=== PATIENT | male | born 1965 | race Caucasian/White ===

== ENCOUNTER 2020-11-21 15:43 | Outpatient (REF) | payer BC, SELFPAY ==
[2020-11-21 16:21] LABS: Blood Urea Nitrogen 24 mg/dL (9-16)
== END 2020-11-21 15:44 | disposition home or self-care (01) ==
LOC: HO.LNP 15:43
PROVIDERS: Visit Provider Internal Medicine
DX: R79.9 Abnormal finding of blood chemistry, unspecified (principal)
CPT/HCPCS: 84520

== ENCOUNTER 2020-12-27 16:15 | Outpatient (REF) | payer BC, SELFPAY ==
[2020-12-27 16:34] LABS: Blood Urea Nitrogen 24 mg/dL (9-16)
== END 2020-12-27 16:16 | disposition home or self-care (01) ==
LOC: HO.LNP 16:15
PROVIDERS: Visit Provider Internal Medicine
DX: R79.9 Abnormal finding of blood chemistry, unspecified (principal)
CPT/HCPCS: 84520

== ENCOUNTER 2021-02-18 10:20 | Outpatient (REF) | payer BC, SELFPAY ==
[2021-02-18 10:25] LABS: MANUAL DIFF FLAG NO
[2021-02-18 10:40] LABS: Basophils Absolute Auto 0.1 X10*3/uL (0.0-0.2); Basophils Percent Auto 0.8 % (0-2); Eosinophils Absolute Auto 1.3 X10*3/uL (0.0-0.4); Eosinophils Percent Auto 17.5 % (0-4); Hematocrit 46.7 % (42.0-52.0); Hemoglobin 15.7 g/dl (14.0-18.0); Imm Gran Abs Auto 0.02 X10*3/uL (0.00-0.03); Imm Gran Pct Auto 0.3 % (0.0-0.4); Lymphocytes Absolute Auto 1.8 X10*3/uL (1.2-4.9); Lymphocytes Percent Auto 23.2 % (20-40); Mean Corpuscular HGB Conc 33.6 g/dl (31.0-36.0); Mean Corpuscular Hemoglobin 30.4 pg (27.0-33.0); Mean Corpuscular Volume 90.5 fL (80.0-98.0); Mean Platelet Volume 9.9 fL (9.4-12.4); Monocytes Absolute Auto 0.7 X10*3/uL (0.1-1.2); Monocytes Percent Auto 8.9 % (2-11); Neutrophils Absolute Auto 3.8 x10*3/uL (2.0-8.3); Neutrophils Percent Auto 49.3 % (45-73); Platelet Count 401 X10*3/uL (160-400); Red Blood Count 5.16 X10*6/uL (4.60-5.80); Red Cell Distribution Width 13.1 % (11.0-16.0); White Blood Count 7.6 X10*3/uL (4.8-10.8)
[2021-02-18 11:07] LABS: Appearance Urine CLEAR; Color Urine YELLOW; Glucose Urine UA NEG (NEG); Leukocyte Esterase Urine NEG (NEG); Nitrite Urine NEG (NEG); PH 6.5 (5.0-8.0); Urine Blood NEG (NEG); Urine Ketones NEG (NEG); Urine Protein NEG (NEG-TRACE)
[2021-02-18 11:17] LABS: PSA,Total (Free>4and<10) 0.85 ng/mL (0.00-4.00)
[2021-02-18 11:19] LABS: Alanine Aminotransferase 27 U/L (0-40); Albumin Level 4.3 g/dL (3.5-5.0); Alkaline Phosphatase 78 U/L (39-117); Anion Gap 11 (12-20); Aspartate Amino Transferase 28 U/L (5-37); Bilirubin Total 0.5 mg/dL (0.0-1.0); Blood Urea Nitrogen 23 mg/dL (9-16); Calcium 10.1 mg/dL (8.4-10.2); Carbon Dioxide 29 mmol/L (22-29); Chloride 107 mmol/L (96-108); Cholesterol 228 mg/dL; Estimated Glomerular Filt Rate > 60; Glucose Fasting 101 mg/dL (60-99); HDL Cholesterol 54 mg/dL; LDL Cholesterol Calculated 159 mg/dl; Potassium 5.2 mmol/L (3.3-5.1); Sodium 142 mmol/L (135-145); Total Protein 7.2 g/dL (6.5-8.0); Triglycerides 79 mg/dL
[2021-02-18 11:21] LABS: Reflex LDLD? No
== END 2021-02-18 10:21 | disposition home or self-care (01) ==
LOC: HO.LNP 10:20
PROVIDERS: Visit Provider Internal Medicine
DX: Z00.00 Encounter for general adult medical examination without abnormal findings (principal); Z12.5 Encounter for screening for malignant neoplasm of prostate; R94.5 Abnormal results of liver function studies; R79.9 Abnormal finding of blood chemistry, unspecified
CPT/HCPCS: 80053; 80061; 81003; 84153; 85025

== ENCOUNTER 2022-04-24 10:45 | Outpatient (REF) | payer BC, SELFPAY ==
[2022-04-24 10:48] LABS: MANUAL DIFF FLAG NO
[2022-04-24 11:23] LABS: Appearance Urine Clear; Color Urine Yellow; Glucose Urine UA Negative (Negative); Leukocyte Esterase Urine Negative (Negative); Nitrite Urine Negative (Negative); PH 6.5 (5.0-9.0); Specific Gravity - Urine 1.015 (1.005-1.025); Urine Blood Negative (Negative); Urine Ketones Negative (Negative); Urine Protein Negative (Neg-Trace)
[2022-04-24 11:44] LABS: Basophils Absolute Auto 0.1 X10*3/uL (0.0-0.2); Basophils Percent Auto 1.1 % (0-2); Eosinophils Absolute Auto 0.4 X10*3/uL (0.0-0.4); Eosinophils Percent Auto 6.2 % (0-4); Hemoglobin 15.5 g/dl (14.0-18.0); Imm Gran Abs Auto 0.02 X10*3/uL (0.00-0.03); Imm Gran Pct Auto 0.3 % (0.0-0.4); Lymphocytes Absolute Auto 1.5 X10*3/uL (1.2-4.9); Lymphocytes Percent Auto 23.4 % (20-40); Mean Corpuscular Hemoglobin 29.5 pg (27.0-33.0); Mean Corpuscular Volume 89.5 fL (80.0-98.0); Mean Platelet Volume 10.7 fL (9.4-12.4); Monocytes Absolute Auto 0.6 X10*3/uL (0.1-1.2); Monocytes Percent Auto 9.9 % (2-11); Neutrophils Absolute Auto 3.8 x10*3/uL (2.0-8.3); Neutrophils Percent Auto 59.1 % (45-73); Platelet Count 326 X10*3/uL (160-400); Red Blood Count 5.25 X10*6/uL (4.60-5.80); Red Cell Distribution Width 12.8 % (11.0-16.0); White Blood Count 6.4 X10*3/uL (4.8-10.8)
[2022-04-24 12:38] LABS: Alanine Aminotransferase 28 U/L (0-40); Albumin Level 4.3 g/dL (3.5-5.0); Alkaline Phosphatase 75 U/L (39-117); Anion Gap 10 (12-20); Aspartate Amino Transferase 26 U/L (5-37); Blood Urea Nitrogen 20 mg/dL (9-16); Calcium 9.6 mg/dL (8.4-10.2); Carbon Dioxide 28 mmol/L (22-29); Chloride 107 mmol/L (96-108); Cholesterol 223 mg/dL; Estimated Glomerular Filt Rate > 60; Glucose Fasting 95 mg/dL (60-99); HDL Cholesterol 57 mg/dL; LDL Cholesterol Calculated 155 mg/dl; PSA,Total (Free>4and<10) 1.01 ng/mL (0.00-4.00); Potassium 4.3 mmol/L (3.3-5.1); Sodium 141 mmol/L (135-145); Triglycerides 58 mg/dL
== END 2022-04-24 10:46 | disposition home or self-care (01) ==
LOC: HO.LNP 10:45
PROVIDERS: Visit Provider Internal Medicine
DX: Z00.00 Encounter for general adult medical examination without abnormal findings (principal); N40.0 Benign prostatic hyperplasia without lower urinary tract symptoms; Z12.5 Encounter for screening for malignant neoplasm of prostate; Z86.39 Personal history of other endocrine, nutritional and metabolic disease
CPT/HCPCS: 80053; 80061; 81003; 84153; 85025

== ENCOUNTER 2022-07-02 11:27 | Outpatient (REF) | payer BC, SELFPAY ==
--- NOTE | ~2022-07-02 | XR_ITS ---
EXAMINATION: XR CHEST CLINICAL INFORMATION: Shortness of breath COMPARISON: Previous x-ray March 2009 TECHNIQUE: 2 views of the chest were obtained. FINDINGS: No significant abnormality is noted involving the heart, lungs, mediastinum, bony thorax or soft tissues. There are mild degenerative changes of the lower thoracic spine. XR/XR chest 2V IMPRESSION: No evidence for acute disease in the chest.
== END 2022-07-02 11:28 | disposition home or self-care (01) ==
LOC: HO.XRAY 11:27
PROVIDERS: PCP Internal Medicine; Visit Provider Internal Medicine
DX: R06.02 Shortness of breath (principal)
CPT/HCPCS: 71046

== ENCOUNTER → 2022-07-23 14:49 | Outpatient (REF) | payer BC, SELFPAY ==
--- NOTE | 2022-07-23 14:52 | CA_ITS ---
Transthoracic Echocardiogram Patient (Last, First, Middle): Jonathan Leyva, Gender: Male Date of : 1965 Age: 56 Procedure Date: 07/23/2022 Procedure Type: Transthoracic Echocardiogram Location: OP Height: 182.88 cm Weight: 96.16 kg BSA: 2.18 m2 Heart Rate: bpm BP: 145 / 90 mmHg Fur Blender: ISABELL Referring MD: Fidel Yo MD Symptoms: R06.02 SOB Study Quality: Adequate ECG Rhythm: Sinus Conclusions: - The left ventricular systolic function is normal. The calculated ejection fraction is 67% by biplane method. - Mildly increased right ventricular cavity size. - No obvious valvular pathology seen on this study. Findings Left Ventricle Normal left ventricular cavity size. The left ventricular systolic function is normal. The calculated ejection fraction is 67% by biplane method. There is no evidence of regional wall motion abnormalities. Diastolic function is normal for age. There is mild septal and mild basal asymmetric hypertrophy. LV peak GLS -22.5% (normal). Right Ventricle Mildly increased right ventricular cavity size. There is normal right ventricular systolic function. Atria The left atrium is mildly dilated. The right atrium is normal in size. Aortic Valve There is a normal trileaflet aortic valve. There is mild calcification of the aortic valve. There is no aortic valve stenosis. There is no aortic valve regurgitation. Mitral Valve The mitral valve appears normal. There is trace mitral valve regurgitation. There is no mitral valve stenosis. Pulmonic Valve The pulmonic valve is likely normal. Tricuspid Valve There is trace tricuspid valve regurgitation. Tricuspid regurgitation envelope is inadequate for calculation of right ventricular systolic pressure. Great Vessels The asc aorta is normal in size. Venous The inferior vena cava is dilated and collapses greater than 50% with inspiration. Pericardium/Pleural There is no evidence of pericardial effusion. Prior Study Comparison No prior study available for comparison. Recommendations, Care & Conclusions No obvious valvular pathology seen on this study. Measurements 2D Linear Measurements IVSd: 1.11 0.6-0.9/0.6-1.0 cm LVIDd: 5.23 3.9-5.3/4.2-5.9 cm LVIDd Index: 2.40 2.4-3.2/2.2-3.1 cm/m2 LVIDs: 3.38 2.0-3.6 cm LVPWd: 0.80 0.7-1.1 cm LA Diam: 3.60 2.7-3.8/3.0-4.0 cm LAIDs Index: 1.65 1.5-2.3 cm/m2 LV Mass: 228.98 67-162/88-224 g LV Mass Index: 105.04 43-95/49-115 g/m2 LVOT Diam: 2.40 3.0+(-)1.3 cm 2D Systolic Function EF 4C: 64.30 >55% EF 2C: 68.90 >55% EF BiP: 66.70 >55% Mitral Valve MV Pk E: 0.83 MV PK A: 0.51 MV Decel Time: 198.00 E/A: 1.60 E'Lateral: 16.10 E'Medial: 10.10 E/E' Med: 8.20 E/E' Lat: 5.10 PHT: 58.00 MVA PHT: 3.79 Decel Barren: 4.18 Aortic Valve AoV Pk Chandra: 1.78 AoV Mn Chandra: 1.26 AoV VTI: 0.46 AoV Pk Grad: 13.00 Aov Mn Grad: 7.00 CHANTEL Cont.VTI: 3.36 LVOT LVOT Pk Chandra: 1.50 LVOT Mn Chandra: 1.00 LVOT VTI: 0.34 LVOT Pk Grad: 9.00 LVOT Mn Grad: 5.00 LVOT Diam: 2.40 LVOT Area: 4.52 Diastolic Function MV Pk E: 0.83 MV Pk A: 0.51 E/A: 1.60 E'Medial: 10.10 E/E' Med: 8.20 E' Laterial: 16.10 E/E' Lat: 5.10 Right Ventricle TAPSE (mm): 33.20 TVS' Chandra: 17.20 Tricuspid Valve RA Press: 8.00 Great Vessels Aorta Sinus of Valsalva: 2.58 2.0-3.5 cm Ao Asc: 3.20 2.1-3.4 cm Updated in Other Vendor System with Status of Final Sandoval Dickson MD electronically signed on 07/24/2022 11:42:17 AM with status of Final
== END ==
LOC: HO.CARD 14:49
PROVIDERS: PCP Internal Medicine; Visit Provider Internal Medicine
DX: R06.02 Shortness of breath (principal)
CPT/HCPCS: 93306; 93356

== ENCOUNTER 2023-04-27 10:34 | Outpatient (REF) | payer BC, SELFPAY ==
[2023-04-27 10:36] LABS: MANUAL DIFF FLAG NO
[2023-04-27 10:50] LABS: Basophils Percent Auto 0.6 % (0-2); Eosinophils Absolute Auto 0.3 X10*3/uL (0.0-0.4); Eosinophils Percent Auto 3.6 % (0-4); Hematocrit 43.7 % (42.0-52.0); Hemoglobin 14.8 g/dl (14.0-18.0); Imm Gran Abs Auto 0.02 X10*3/uL (0.00-0.03); Imm Gran Pct Auto 0.3 % (0.0-0.4); Lymphocytes Absolute Auto 1.2 X10*3/uL (1.2-4.9); Lymphocytes Percent Auto 18.1 % (20-40); Mean Corpuscular HGB Conc 33.9 g/dl (31.0-36.0); Mean Corpuscular Hemoglobin 29.9 pg (27.0-33.0); Mean Corpuscular Volume 88.3 fL (80.0-98.0); Mean Platelet Volume 10.1 fL (9.4-12.4); Monocytes Absolute Auto 0.6 X10*3/uL (0.1-1.2); Monocytes Percent Auto 9.1 % (2-11); Neutrophils Absolute Auto 4.7 x10*3/uL (2.0-8.3); Neutrophils Percent Auto 68.3 % (45-73); Platelet Count 327 X10*3/uL (160-400); Red Blood Count 4.95 X10*6/uL (4.60-5.80); Red Cell Distribution Width 12.5 % (11.0-16.0); White Blood Count 6.9 X10*3/uL (4.8-10.8)
[2023-04-27 11:04] LABS: Appearance Urine Clear; Color Urine Yellow; Glucose Urine UA Negative (Negative); Leukocyte Esterase Urine Negative (Negative); Nitrite Urine Negative (Negative); PH 7.5 (5.0-9.0); Urine Blood Negative (Negative); Urine Ketones Negative (Negative); Urine Protein Negative (Neg-Trace)
[2023-04-27 11:08] LABS: Bacteria Urine None Seen (None Seen); Hyaline Casts Urine 0-2 /LPF (0-2); RBC Urine 0-2 /HPF (0-2); Squamous Epithelial Cell Urine 0-2 /HPF (0-2); WBC Urine 0-5 /HPF (0-5)
[2023-04-27 11:55] LABS: Alanine Aminotransferase 28 U/L (0-40); Albumin Level 4.3 g/dL (3.5-5.0); Alkaline Phosphatase 77 U/L (39-117); Anion Gap 8 (12-20); Aspartate Amino Transferase 27 U/L (5-37); Bilirubin Total 0.7 mg/dL (0.0-1.0); Blood Urea Nitrogen 19 mg/dL (9-16); Calcium 9.6 mg/dL (8.4-10.2); Carbon Dioxide 28 mmol/L (22-29); Chloride 107 mmol/L (96-108); Cholesterol 218 mg/dL (<200); Estimated Glomerular Filt Rate > 60; Glucose Fasting 100 mg/dL (60-99); HDL Cholesterol 60 mg/dL (>40); LDL Cholesterol Calculated 146 mg/dL (<100); Potassium 4.4 mmol/L (3.3-5.1); Sodium 139 mmol/L (135-145); Total Protein 7.4 g/dL (6.5-8.0); Triglycerides 64 mg/dL (<150)
[2023-04-27 12:40] LABS: PSA,Total (Free>4and<10) 1.08 ng/mL (0.00-4.00)
== END 2023-04-27 10:35 | disposition home or self-care (01) ==
LOC: HO.LNP 10:34
PROVIDERS: Visit Provider Internal Medicine
DX: Z00.00 Encounter for general adult medical examination without abnormal findings (principal); Z12.5 Encounter for screening for malignant neoplasm of prostate; Z13.6 Encounter for screening for cardiovascular disorders; N40.0 Benign prostatic hyperplasia without lower urinary tract symptoms
CPT/HCPCS: 80053; 80061; 81001; 84153; 85025

== ENCOUNTER 2023-05-03 15:06 | Outpatient (REF) | payer BC, SELFPAY ==
--- NOTE | ~2023-05-03 | XR_ITS ---
EXAMINATION: XR CHEST CLINICAL INFORMATION: Mild intermittent asthma. COMPARISON: 07/02/2022 TECHNIQUE: 3 views of the chest. FINDINGS: The lungs are well inflated. There is no gross pneumothorax. Heart size within normal limits. No pleural effusion. Mild degenerative changes in the thoracic spine. No gross pleural effusion. XR/XR chest 2V IMPRESSION: No evidence of pneumonia. Well-inflated lungs.
== END 2023-05-03 15:07 | disposition home or self-care (01) ==
LOC: HO.XRAY 15:06
PROVIDERS: PCP Internal Medicine; Visit Provider Internal Medicine
DX: J45.20 Mild intermittent asthma, uncomplicated (principal)
CPT/HCPCS: 71046

== ENCOUNTER 2024-01-03 07:33 | Day surgery (SDC) | payer BC, SELFPAY ==
[2023-12-30 14:20] VITALS: BMI 28.7
[2024-01-03 07:42] VITALS: BMI 28.1
[2024-01-03] MEDS: Lactated Ringers 1,000 ML 80 ML IVCONT (07:47)
[2024-01-03 07:55] VITALS: BP 141/91; PULSE 61; RESP 18; TEMP 36.7; O2SAT 97
--- NOTE | 2024-01-03 08:14 | P.CONAN_ITS ---
[facility] Past Medical History Medical History Asthma Surgical History Surgical History History of surgery on arm History of ankle surgery Hx of appendectomy H/O colonoscopy History of Problems with Anesthesia: No Social History Social History Household Members: Spouse Are you a primary tree care foreman to a significant other at home: No Do you presently have visiting nurse or other home services: No Patient Tobacco Use Status: Never used Tobacco Have you been hit, kicked, punched, or otherwise hurt by someone within the past year? If so, by whom?: No Are you DNR?: No Advance Directives: No Advance Directives Information Provided: Yes Recently lost weight without trying: No Nutrition Risks: No Nutritional Risk Meds Allergies Allergy/AdvReac Type Severity Reaction Status Date / Time No Known Allergies Allergy Verified 01/03/24 07:44 Active Medications: Current Medications Lactated Ringer's (Lr) 1,000 mls @ 80 mls/hr IVCONT .[id number] SAADIA Last Admin: 01/03/24 07:47 Dose: 80 mls/hr Sodium Biphosphate/Sodium Phosphate (Sodium Phosphate,Churchill-Dibasic 133 Ml Enema) 133 ml DC ONCE PRN PRN Reason: Poor Colonoscopy Prep Results Home Medications ?Medication ?Instructions ?Recorded ?Confirmed ?Last Taken ?Type albuterol sulfate 90 mcg/actuation 2 puff inhalation Q4-6H PRN 12/30/23 12/30/23 Unknown History aerosol inhaler Shortness Of Breath fluticasone 250 mcg-salmeterol 50 1 inh inhalation BID 12/30/23 12/30/23 01/03/24 History mcg/dose blistr powdr for inhalation tadalafil 20 mg tablet 20 mg PO DAILY PRN Erectile 12/30/23 12/30/23 Unknown History Dysfunction Exam Height,Weight and Vital Signs: Height 6 ft 0.5 in Weight 95.254 kg Last Vital Signs Temp 98.0 F 01/03/24 07:55 Pulse 61 01/03/24 07:55 Resp 18 01/03/24 07:55 BP 141/91 H 01/03/24 07:55 Pulse Ox 97 01/03/24 07:55 O2 Del Method Room Air 01/03/24 07:55 Airway Mallampati Class: II TM Dist: >3cm Neck ROM: Full Loose/Missing/Broken Teeth: No Heart: RRR Lungs: CTA Assessment and Plan Assessment Anesthesia Assessment: Anesthesia Plan Discussed and Chart Reviewed Final Anesthetic Review History of Problems with Anesthesia: No NPO: Yes ASA Class: II Final Preanesthetic Review: Meds/Allgs Chart Reviewed, Consent Obtained/Reviewed and Anes Risks/Benef Reviewed Patient Risk: Low Procedure Risk: Low Anesthetic Plan Anesthetic Plan: MAC: Disposition: Standard PACU
[2024-01-03 09:33] VITALS: BP 111/54; PULSE 57; RESP 18; TEMP 36.1; O2SAT 98
--- NOTE | 2024-01-03 09:36 | PM.OP ---
Brief Operative Note Date of Service: 01/03/24 Pre-op diagnosis: Screening Post-op diagnosis: other (Diverticulosis) Procedure: Colonoscopy to the cecum Surgeon: Adrián Pedraza MD Anesthesia: MAC Was an Business Banking Officer used for this Procedure?: No Estimated blood loss (mL): 0 Pathology: none sent Condition: stable Disposition: PACU
[2024-01-03 09:48] VITALS: BP 126/83; PULSE 68; RESP 18; TEMP 36.1; O2SAT 98
--- NOTE | 2024-01-03 09:53 | OP_ITS ---
DATE OF SERVICE: 01/03/2024 SURGEON: Adrián Pedraza MD INDICATIONS: The patient presents for evaluation of colorectal cancer screening. Full consent was obtained from him for this, including risks of bleeding and perforation. PREOPERATIVE DIAGNOSIS: Colorectal cancer screening. POSTOPERATIVE DIAGNOSIS: PROCEDURE PERFORMED: Colonoscopy to cecum. ESTIMATED BLOOD LOSS: COMPLICATIONS: ANESTHESIA: Medication used, monitored anesthesia care. ASSISTANTS: SPECIMENS: POSTOPERATIVE DIAGNOSES: Colorectal cancer screening, diverticulosis, and internal hemorrhoids. DESCRIPTION OF PROCEDURE: The patient was placed in the left lateral decubitus position. The digital rectal exam revealed no abnormalities. The Olympus video pediatric colonoscope was entered into the rectum and advanced to the cecum with the assistance of abdominal wall pressure. Once in the cecum, I did identify normal-appearing cecal pouch with appendiceal orifice and a normal-appearing ileocecal valve. There was transillumination of light deep in the right lower quadrant. The entire cecum and ileocecal valve appeared normal. The scope was slowly withdrawn assessing all mucosal surfaces carefully. Preparation was excellent. I did not visualize any sign of polyps, colitis, nor angiodysplasia. There was a mild amount of sigmoid diverticulosis. In the rectum, the scope was retroflexed visualizing internal hemorrhoids, but no other pathology. The rectal mucosa appeared normal. The scope was straightened and withdrawn from the patient. He tolerated the procedure well and was returned to the recovery area in stable condition. IMPRESSION: 1. Diverticulosis. 2. Internal hemorrhoids. PLAN: Given the negative exam and negative family history, I would recommend a followup coloscopy in 10 years for further screening. He will otherwise see me on a p.r.n. basis. Adrián Pedraza MD RMW/JESSIKAL / [id number]
== END 2024-01-03 10:27 | disposition home or self-care (01) ==
PROVIDERS: PCP Internal Medicine; Visit Provider Internal Medicine
PROC: 0DJD8ZZ Inspection of Lower Intestinal Tract, Via Natural or Artificial Opening Endoscopic (ICD-10-PCS; CPT 45378; principal; 2024-01-03 08:30)
DX: Z12.11 Encounter for screening for malignant neoplasm of colon (principal); K57.30 Diverticulosis of large intestine without perforation or abscess without bleeding; K64.8 Other hemorrhoids; J45.909 Unspecified asthma, uncomplicated; Z79.51 Long term (current) use of inhaled steroids; Z98.890 Other specified postprocedural states
CPT/HCPCS: 45378; J2250; J2704

== ENCOUNTER 2024-02-04 13:14 | Outpatient (REF) | payer BC, SELFPAY ==
--- NOTE | ~2024-02-04 | XR_ITS ---
EXAMINATION: XR CHEST CLINICAL INFORMATION: PNEUMONIA DUE TO MYCOPLASMA PNEUMONIAE COMPARISON: None available. TECHNIQUE: 2 views of the chest were obtained. FINDINGS: The cardiac silhouette is normal. There is mild diffuse bronchial wall thickening. There are no areas of consolidation. There are no pleural effusions or pneumothoraces. The bones and soft tissues are unremarkable for the patient's age. XR/XR chest 2V IMPRESSION: Bronchial wall thickening may be infectious and/or inflammatory in etiology. Electronically signed by: Oriana Ortega MD 02/05/2024 07:08 PM [facility]
== END 2024-02-04 13:15 | disposition home or self-care (01) ==
LOC: HO.XRAY 13:14
PROVIDERS: PCP Internal Medicine; Visit Provider Internal Medicine
DX: J15.7 Pneumonia due to Mycoplasma pneumoniae (principal)
CPT/HCPCS: 71046

== ENCOUNTER 2024-04-27 08:00 | Outpatient (REF) | payer BC, SELFPAY ==
[2024-04-27 10:33] LABS: MANUAL DIFF FLAG NO
[2024-04-27 11:01] LABS: Basophils Absolute Auto 0.1 X10*3/uL (0.0-0.2); Basophils Percent Auto 0.8 % (0-2); Eosinophils Absolute Auto 0.4 X10*3/uL (0.0-0.4); Hematocrit 45.2 % (42.0-52.0); Hemoglobin 15.3 g/dl (14.0-18.0); Imm Gran Abs Auto 0.03 X10*3/uL (0.00-0.03); Imm Gran Pct Auto 0.4 % (0.0-0.4); Lymphocytes Absolute Auto 1.6 X10*3/uL (1.2-4.9); Lymphocytes Percent Auto 21.1 % (20-40); Mean Corpuscular HGB Conc 33.8 g/dl (31.0-36.0); Mean Corpuscular Hemoglobin 29.9 pg (27.0-33.0); Mean Corpuscular Volume 88.5 fL (80.0-98.0); Mean Platelet Volume 9.7 fL (9.4-12.4); Monocytes Absolute Auto 0.7 X10*3/uL (0.1-1.2); Neutrophils Absolute Auto 4.7 x10*3/uL (2.0-8.3); Neutrophils Percent Auto 63.7 % (45-73); Platelet Count 384 X10*3/uL (160-400); Red Blood Count 5.11 X10*6/uL (4.60-5.80); Red Cell Distribution Width 12.4 % (11.0-16.0); White Blood Count 7.3 X10*3/uL (4.8-10.8)
[2024-04-27 11:26] LABS: Appearance Urine Clear; Color Urine Yellow; Glucose Urine UA Negative (Negative); Leukocyte Esterase Urine Negative (Negative); Nitrite Urine Negative (Negative); Urine Blood Negative (Negative); Urine Ketones Negative (Negative); Urine Protein Negative (Neg-Trace)
[2024-04-27 11:34] LABS: Albumin Level 4.1 g/dL (3.5-5.0); Alkaline Phosphatase 76 U/L (39-117); Anion Gap 10 (12-20); Aspartate Amino Transferase 37 U/L (5-37); Bilirubin Total 0.4 mg/dL (0.0-1.0); Blood Urea Nitrogen 22 mg/dL (9-16); Calcium 9.5 mg/dL (8.4-10.2); Carbon Dioxide 28 mmol/L (22-29); Chloride 107 mmol/L (96-108); Cholesterol 195 mg/dL (<200); Estimated Glomerular Filt Rate > 60; Glucose Fasting 99 mg/dL (60-99); HDL Cholesterol 53 mg/dL (>40); LDL Cholesterol Calculated 130 mg/dL (<100); Potassium 4.5 mmol/L (3.3-5.1); Sodium 140 mmol/L (135-145); Total Protein 7.5 g/dL (6.5-8.0); Triglycerides 63 mg/dL (<150)
[2024-04-27 11:41] LABS: PSA,Total (Free>4and<10) 1.38 ng/mL (0.00-4.00)
[2024-04-27 11:46] LABS: Alanine Aminotransferase 38 U/L (0-40)
--- OUTSIDE RECORDS SUMMARY | 2024-04-27 12:16 | XMS_ITS ---
Author Organization Fidel Yo MD Address [address] [place], [place] [id number] Care Team Providers Care Administrative Support Assoc Name Role Phone Fidel Yo Primary Care Provider Allergies No Known Allergies REASON FOR VISIT cough fever, c/o fatigue fever chills,sinus pressure productive cough, cannot smell or taste, runnynose, congestion started 01-21-24, video [phone], tested negative last night for Covid Medications Medication SIG (Take, Route, Frequency, Duration) Notes Start Date End Date Status Fluticasone-Salmeterol 250-50 MCG/ACT INHALE ONE PUFF BY MOUTH TWICE A DAY for 30 Active Tadalafil 20 MG TAKE ONE TABLET BY M OUTH EVERY DAY NEEDED for 60 Active Zithromax Z-Emiliano 250 MG 2 tablet on the irst day, then 1 tablet daily for 4 days Orally Once a day for 5 day(s) 02/04/2024 Active Ventolin HFA 108 (90 Base) MCG/ACT 2 puffs Inhalation every 4 hours for 30 days 09/21/2011 Not-Taking Vital Signs Height 72 in 02/04/2024 weight at home is 210 BP not taken at home no temp Encounters Encounter Location Date Provider Diagnosis Fidel Yo MD [address] [place] [phone] 02/04/2024 Fidel Yo Pneumonia due to Mycoplasma pneumoniae, unspecified laterality, unspecified part of lung J15.7 Assessments Encounter Date Diagnosis (ICD Code) Assessment Notes Treatment Notes Treatment Clinical Notes Section Notes 02/04/2024 Pneumonia due to Mycoplasma pneumoniae, unspecified laterality, unspecified part of lung (ICD-10 - J15.7) order faxed to [facility] patient reg, pending diagnostic testing, patient verbalized understanding of medication and directions for use Plan Of Treatment Medication Medication Name Sig Start Date Stop Date Notes Zithromax Z-Emiliano 250 MG 2 tablet on the f irst day, then 1 tablet daily for 4 days Orally Once a day for 5 day(s) 02/04/2024 Treatment Notes Assessment Notes Pneumonia due to Mycoplasma pneumoniae, unspecified laterality, unspecified part of lung order faxed to [facility] patient reg, pending diagnostic testing, patient verbalized understanding of medication and directions for use Pending Test Test Name Order Date XR CHEST 2 VIEW PA & LAT 02/04/2024 Next Appt Details Provider Name:Fidel Shepard ier, 05/04/2024 01:00:00 PM, [address] [place] [address], [address], [place], [place], [phone], Progress Notes * Jonathan LEYVA CDOB:1965 (58 yo M)Acc No.[id number]:02/04/2024 Patient:?Jonathan Leyva Provider:?Fidel Yo MD :1965???Age:58 Y???Sex:Male Srinivas e:02/04/2024 Address:[address] [place] [address], [id number] Subjective: * Chief Complaints: * ???Cough feverC/o fatigue fe josh chills,sinus pressure productive cough, cannot smell or taste, runny nose, congestion started [id number] [phone] negative last night for Covid * HPI: ???Symptom(s):?Telehealth?Location of provider rendering services:?[address], [address],?Location of patient:?at address listed in demographics for today's visit,?Patient identification confirmed using:?Name, , SSN, Insurance information,?Telehealth method:?Video conference where patient is visible to the provider of care,?Consent:?Patient verbally consented to treatment, Patient verbally consented to billing insurance company, Patient informed of any privacy concerns related to method of visit.? patient is a 58 yo mle video teleheath visit, with complaint of fatigue, fevers come on occasionally at night. cough in morning. lot of phlegm. is congested in sinuses, tested negative for covid. * ROS:?General/Constitutional:?Admits?Chills.?Admits?Fatigue.?Admits?Fever.?Admits?Headache.?ENT:?Patient denies?decreased sense of smell , any loss of taste , sore throat.?Denies?Sinus pain.?Admits?Sore throat,?started with a sore throat 01-22-24.?Respiratory:?Admits?Cough.?Denies?Shortness of breath at rest.?Denies?Shortness of breath with exertion.?Admits?Sputum production.?Gastrointestinal:?Denies?Diarrhea.?Denies?Nausea.?Musculoskeletal:?Patient denies?muscle aches.?Peripheral Vascular:?Patient denies?red and blue toes.? * Medical History:? * Surgical History:? * Hospitalization/Major Diagno stic Procedure:? * Medications:?TakingTadalafil 20 MG Tablet TAKE ONE TABLET BY MOUTH EVERY DAY NEEDED Fluticasone-Salmeterol 250-50 MCG/ACT Aerosol Powder Breath Activated INHALE ONE PUFF BY MOUTH TWICE A DAY Taking Tadalafil 20 MG Tablet TAKE ONE TABLET BY MOUTH EVERY DAY NEEDED Taking Fluticasone-Salmeterol 250-50 MCG/ACT Aerosol Powder Breath Activated INHALE ONE PUFF BY MOUTH TWICE A DAY Not-Taking/PRNVentolin HFA 108 (90 Base) MCG/ACT Aerosol Solution 2 puffs Inhalation every 4 hoursMedication List reviewed and reconciled with the patientNot-Taking/PRN Ventolin HFA 108 (90 Base) MCG/ACT Aerosol Solution 2 puffs Inhalation every 4 hoursMedication List reviewed and reconciled with the patient * Allergies:?N.K.D.A.yes[Aller gies Verified] Objective: * Vitals:?Ht: 72 weight at home is 210 BP not taken at home no temp. * Examination: ???General Examination: ?GENERAL APPEARANCE:?alert, well hydrated, in no distress.? Assessment: * Assessment: 1.?Pneumonia due to Mycoplas ma pneumoniae, unspecified laterality, unspecified part of lung - J15.7 (Primary)? Plan: * Treatment: * Procedure Codes:? * * Sign off status: Completed true * Provider:?Fidel Yo MD Date:?1 04/06/2023 Generated for Juan swenson/Lary/Amiitting on:?04/27/2024 12:15 PM EST History and Physical Notes * HPI (History of Present Illness) Category Sub-Category Detail Notes Category Not es Symptom(s) Telehealth Location of [facility] rendering services:: [address], [address] patient is a 58 yo mle video teleheath visit, with complaint of fatigue, fevers come on occasionally at night. cough in morning. lot of phlegm. is congested in sinuses, tested negative for covid Location of patient:: at address listed in demographics for today's visit Patient identification confirmed using:: Name, , SSN, Insurance information Telehealth method:: Video co nference where patient is visible to the provider of care Consent:: Patient verbally c onsented to treatment, Patient verbally consented to billing insurance company, Patient informed of any privacy concerns related to method of visit Examination Category Sub-Category Detail Notes Category Not es General Examination GENERAL APPEARANCE: alert, w ell hydrated, in no distress
--- OUTSIDE RECORDS SUMMARY | 2024-04-27 12:16 | XMS_ITS ---
Author Organization Fidel Yo MD Address [address] [place], [place] [id number] Care Team Providers Care Molder Bench Name Role Phone Fidel Yo Primary Care Provider Allergies No Known Allergies Results Component Value Reference Range Notes Occult Blood, Stool, Guaiac Reviewed date:05/03/2023 03:53:23 PM Interpretation:Negative Performing Lab: Notes/Report: Negative Occult Blood, Stool, Guaiac Neg Reason For Referral Reason SCREEN FOR COLON CAN CER Diagnosis 1 Screen for colon can cer (Z12.11) Referral Organization Fidel Yo MD Referring Provider First Name Fidel Referring Provider Last Name Srinath Referring Provider Speciality Internal M edicine Referred Provider Adrián Perez Referred Provider Specialty Gastroentero logy General Notes Marleny Boyer 09/16/2023 01:01:07 PM EDT > OFFICE NOTE RECD Referral Priority Routine Referral Appointment Date 08/25/2023 REASON FOR VISIT annual visit, No Covid symptoms Medications Medication SIG (Take, Route, Frequency, Duration) Notes Start Date End Date Status Ventolin HFA 108 (90 Base) MCG/ACT 2 puffs Inhalation every 4 hours for 30 days 09/21/2011 Not-Taking Advair Diskus 250-50 MCG/ACT 1 puff Inhalation Twice a day 07/02/2022 Active Tadalafil 20 MG 1 tablet Orally Once a day as needed for 30 days 08/28/2021 Active Social History Tobacco Use: Social History Observation Description Date Details (start date - stop date) Never Smoker NA - NA Tobacco Use/Smoking Question Answer Notes Patient is a nonsmoker Additional Findings: Tobacco Non-User Cu rrent non-smoker, currently using no form of tobacco Alcohol Screen Question Answer Notes Did you have a drink containing alcohol in the p ast year? No Points 0 Interpretation Negative Vital Signs Blood pressure systolic 122 mm Hg 05/03/19 Blood pressure diastolic 80 mm Hg 024 Height 72 in 05/03/2023 Weight 219 lbs 05/03/2023 BMI 29.70 kg/m2 05/03/2023 weight is up 5 pounds since 09-29-22 Encounters Encounter Location Date Provider Diagnosis Fidel Yo MD [address] [place] [address] Drive [address] [place], [place] [id number] 05/03/2023 Fidel Yo Mild intermittent asthma without complication J45.20 ; Annual physical exam Z00.00 ; Prostatism N40.0 ; Colon cancer screening Z12.11 and Depression screening Z13.31 Assessments Encounter Date Diagnosis (ICD Code) Assessment Notes Treatment Notes Treatment Clinical Notes Section Notes 05/03/2023 Mild intermittent asthma without complication (ICD-10 - J45.20) pending diagnostic testing, CHEST XRAY ORDER GIVEN TO PATIENT 05/03/2023 Annual physical exam (ICD-10 - Z00.00) labs reviewed and discussed with patient, make appt with dr perez/ REFERRAL MADE TO [facility] SCHEDULED FOR 08/25/23 AT 3PM. PATIENT NOTIFIED 05/03/2023 Prostatism (ICD-10 - N40.0) stable, will continue to monitor 05/03/2023 Colon cancer screening (ICD-10 - Z12.11) guaiac negative 05/03/2023 Depression screening (ICD-10 - Z13.31) negative screen Plan Of Treatment Medication Medication Name Sig Start Date Stop Date Notes Advair Diskus 250-50 MCG/ACT 1 puff Inhalation Twice a day 07/02/2022 Treatment Notes Assessment Notes Mild intermittent asthma wit hout complication pending diagnostic testing, CHEST XRAY ORDER GIVEN TO PATIENT Annual physical exam labs reviewed and d iscussed with patient, make appt with dr perez/ REFERRAL MADE TO [facility] SCHEDULED FOR 08/25/23 AT 3PM. PATIENT NOTIFIED Prostatism stable, will continu e to monitor Colon cancer screening guaiac negative Depression screening negative screen Pending Test Test Name Order Date XR CHEST 2 VIEW PA & LAT 05/03/2023 Referrals Referral Date Details 05/03/2023 05/03/2023, SCREEN F OR COLON CANCER, Adrián Perez Next Appt Details Follow Up: 1 Year, Reason: Provider Name:Fidel deluca, 05/04/2024 01:00:00 PM, [address], [address], [place], [place], [phone], Progress Notes * Jonathan LEYVA CDOB:1965 (57 yo M)Acc No.[id number]:05/03/2023 Progress Notes Patient:?Jonathan Leyva C Provider:?Fidel Yo MD :1965???Age:57 Y???Sex:Male Srinivas e:05/03/2023 Address:[address] [place] [address], [facility] [address], [facility] Subjective: * Chief Complaints: * ???Annual visitNo Covid symp toms * HPI: ???Depression Screening:?PHQ-9?Little interest or pleasure in doing things?Not at all,?Feeling down, depressed, or hopeless?Not at all,?Trouble falling or staying asleep, or sleeping too much?Not at all,?Feeling tired or having little energy?Not at all,?Poor appetite or overeating?Not at all,?Feeling bad about yourself or that you are a failure, or have let yourself or your family down?Not at all,?Trouble concentrating on things, such as reading the newspaper or watching television?Not at all,?Moving or speaking so slowly that other people could have noticed; or the opposite, being so fidgety or restless that you have been moving around a lot more than usual?Not at all,?Thoughts that you would be better off or of hurting yourself in some way?Not at all,?Total Score?0.?Interpretation and Intervention?Depression Screening Findings?Negative,?Follow-Up for Depression?: review of PHQ-9 found negative result, no follow-up needed.? patient is a 57 yo male HERE FOR YEARLY EVALUATION with review of recent labs and follow up of chronic issues. once on the advair his breathing got perfect. starting to feel it wheeze again. occasionally uses rescue before hiking/ occuring last month. ???Communication Needs:?Communication Needs?Does the patient have a hearing impairment?No,?Does the patient have a vision impairment??Yes,?If yes, what is the vision impairment??Glasses,?Does the patient have a cognition impairment??No.?SDOH Questions:?SDOH Questions?In the past year have you been worried about losing housing??No,?In the past year have you or any family members you live with been unable to get any of the following when it was really needed? Check all that apply:?None.? * ROS:?General/Constitutional:?Patient denies?fatigue, headache.?Change in appetite?denies.?Chills?denies.?Fever?denies.?Ophthalmologic:?Blurred vision?denies.?Discharge?denies.?Pain?denies.?ENT:?Patient denies?decreased sense of smell, any loss of taste, sore throat.?Decreased hearing?denies.?Sore throat?denies.?Swollen glands?denies.?Endocrine:?Cold intolerance?denies.?Excessive thirst?denies.?Heat intolerance?denies.?Weight loss?denies.?Respiratory:?Cough?denies.?Shortness of breath at rest?denies.?Shortness of breath with exertion?denies.?Wheezing?denies.?Cardiovascular:?Chest pain at rest?denies.?Chest pain with exertion?denies.?Irregular heartbeat?denies.?Shortness of breath?denies.?Gastrointestinal:?Abdominal pain?denies.?Change in bowel habits?denies.?Diarrhea?denies.?Nausea?denies.?Rectal bleeding?denies.?Vomiting?denies .?Genitourinary:?Blood in urine?denies.?Difficulty urinating?denies.?Frequent urination?denies.?Musculoskeletal:?Patient denies?muscle aches.?Painful joints?denies.?Weakness?denies.?Peripheral Vascular:?Patient denies?red and blue toes.?Skin:?Dry skin?denies.?Itching?denies.?Denies?Mole(s),? changes in moles, new moles or any lesions of concern.?Denies?Photosensitivity.?Rash?denies.?Neurologic:?Dizziness?denies.?Fainting?denies.?Headache?denies.? * Medical History:? * Surgical History:? * Hospitalization/Major Diagno stic Procedure:? * Family History:?Father: dece ased 75 yrs.?Mother: 85 yrs.?1 sister(s) . 1 son(s) . .? Father Pulmonary Mother- Dementia, Denies mental health/substance abuse family history, Denies mental health/substance abuse family history, Denies mental health/substance abuse family history, Denies mental health/substance abuse family history. * Social History:?Tobacco Use:?Tobacco Use/Smoking?Patient is a?nonsmoker,?Additional Findings: Tobacco Non-User?Current non-smoker, currently using no form of tobacco.?Drugs/Alcohol:?Alcohol Screen?Did you have a drink containing alcohol in the past year??No,?Points?0,?Interpretation?Negative.?Miscellaneous:?Caffeine: yes, frequency:, 1-2 cups per day. Children: yes. Community involvements: yes. Exercise: yes, running crossfit 3 times a week sprinting mainly. Home smoke detector use: yes. Housing: owning. Living with: spouse, family. Occupation: weeks/months/years, works full-time. Pets: cats: dogs: 4 dogs 2 cats. no Travel outside of the [place]. * Medications:?TakingTadalafil 20 MG Tablet 1 tablet Orally Once a day as neededAdvair Diskus 250-50 MCG/ACT Aerosol Powder Breath Activated 1 puff Inhalation Twice a dayTaking Tadalafil 20 MG Tablet 1 tablet Orally Once a day as neededTaking Advair Diskus 250-50 MCG/ACT Aerosol Powder Breath Activated 1 puff Inhalation Twice a dayNot-Taking/PRNVentolin HFA 108 (90 Base) MCG/ACT Aerosol Solution 2 puffs Inhalation every 4 hoursMedication List reviewed and reconciled with the patientNot-Taking/PRN Ventolin HFA 108 (90 Base) MCG/ACT Aerosol Solution 2 puffs Inhalation every 4 hoursMedication List reviewed and reconciled with the patient * Allergies:?N.K.D.A.yes[Aller gies Verified] Objective: * Vitals:?Ht: 72, Wt:219, BMI: 29.70, BP:122/80 weight is up 5 pounds since 09-29-22. * ???Past Orders: ???Lab:Comprehensive [place]. P christopher Fast (Order Date - 04/27/2023) (Collection Date - 04/27/2023) ? Value Reference Range ?Sodium 139 135-145 - mmo l/L ?Bilirubin Total 0.7 0.0- 1.0 - mg/dL ?Aspartate Amino Transferase 27 5-37 - U/L ?Alanine Aminotransferase 28 0-40 - U/L ?Total Protein 7.4 6.5-8. 0 - g/dL ?Albumin Level 4.3 3.5-5. 0 - g/dL ?Alkaline Phosphatase 77 39-117 - U/L ?Potassium 4.4 3.3-5.1 - mmol/L ?Chloride 107 96-108 - mm ol/L ?Carbon Dioxide 28 22-29 - mmol/L ?Anion Gap 8 L 12-20 - ?Blood Urea Nitrogen 19 H 9-16 - mg/dL ?Creatinine 1.01 0.5-1.4 - mg/dL ?Estimated Glomerular Filt Rate > 60 - ?Glucose Fasting 100 H 60-9 9 - mg/dL ?Calcium 9.6 8.4-10.2 - m g/dL ???Lab:Lipid Panel (Order Da te - 04/27/2023) (Collection Date - 04/27/2023) ? Value Reference Range ?Triglycerides 64 <150 - mg/dL ?Cholesterol 218 H <200 - m g/dL ?LDL Cholesterol Calculated 146 H <100 - mg/dL ?HDL Cholesterol 60 >40 - mg/dL ???Lab:UA ClnCatch+Micro w/r flx Cult (Order Date - 04/27/2023) (Collection Date - 04/27/2023) ? Value Reference Range ?Color Urine Yellow - ?Appearance Urine Clear - ?PH 7.5 5.0-9.0 - ?Glucose Urine UA Negative Neg ative - mg/dL ?Urine Blood Negative Negative - ?Specific [place] - Urine 1.020 1.005-1.025 - ?Urine Protein Negative Neg-Tr elias - mg/dL ?Urine Ketones Negative Negati ve - mg/dL ?Nitrite Urine Negative Negati ve - ?Leukocyte Esterase Urine Negative Negative - ?RBC Urine 0-2 0-2 - /HPF ?WBC Urine 0-5 0-5 - /HPF ?Squamous Epithelial Cell Urine 0-2 0-2 - /HPF ?Bacteria Urine None Seen None Seen - ?Hyaline Casts Urine 0-2 0-2 - /LPF ???Lab:PSA,Total (Free>4and< 10) (Order Date - 04/27/2023) (Collection Date - 04/27/2023) ? Value Reference Range ?PSA,Total (Free>4and<10) 1.08 0.00-4.00 - ng/mL ???Lab:Complete Blood Count Auto Diff (Order Date - 04/27/2023) (Collection Date - 04/27/2023) ? Value Reference Range ?White Blood Count 6.9 4. 8-10.8 - X10*3/uL ?Red Blood Count 4.95 4.60 -5.80 - X10*6/uL ?Hemoglobin 14.8 14.0-18.0 - g/dl ?Hematocrit 43.7 42.0-52.0 - % ?Mean Corpuscular Volume 88.3 80.0-98.0 - fL ?Mean Corpuscular Hemoglobin 29.9 27.0-33.0 - pg ?Mean Corpuscular HGB Conc 33.9 31.0-36.0 - g/dl ?Red Cell Distribution Width 12.5 11.0-16.0 - % ?Platelet Count 327 160-4 00 - X10*3/uL ?Mean Platelet Volume 10.1 9.4-12.4 - fL ?Neutrophils Percent Auto 68.3 45-73 - % ?Imm Gran Pct Auto 0.3 0. 0-0.4 - % ?Lymphocytes Percent Auto 18.1 L 20-40 - % ?Monocytes Percent Auto 9.1 2-11 - % ?Eosinophils Percent Auto 3.6 0-4 - % ?Basophils Percent Auto 0.6 0-2 - % ?NRBC Pct Auto 0.0 0.0-0. 2 - /100WBC ?Neutrophils Absolute Auto 4.7 2.0-8.3 - x10*3/uL ?Imm Gran Abs Auto 0.02 0. 00-0.03 - X10*3/uL ?Lymphocytes Absolute Auto 1.2 1.2-4.9 - X10*3/uL ?Monocytes Absolute Auto 0.6 0.1-1.2 - X10*3/uL ?Eosinophils Absolute Auto 0.3 0.0-0.4 - X10*3/uL ?Basophils Absolute Auto 0.0 0.0-0.2 - X10*3/uL ?NRBC Abs Auto 0.000 0.0-0. 012 - X10*3/uL * Examination: ???General Examination: ?GENERAL APPEARANCE:?well developed, well nourished, in no acute distress.?HEAD:?normocephalic, atraumatic.?EYES:?pupils equal, round, reactive to light and accommodation, sclera non-icteric.?EARS:?normal.?ORAL CAVITY:?mucosa moist.?THROAT:?clear.?NECK/THYROID:?neck supple, full range of motion, no cervical lymphadenopathy, no bruits.?SKIN:?warm and dry, no suspicious lesions.?HEART:?regular rate and rhythm, S1, S2 normal, no murmurs.?LUNGS:?clear to auscultation bilaterally with few fine rales at bases.?ABDOMEN:?soft, nontender, nondistended, bowel sounds present, normal, no organomegaly , no masses palpable.?RECTAL EXAM:?normal tone, no external hemorrhoids, no masses palpable, prostate normal, stool guaiac negative.?MALE GENITOURINARY:?circumcised, no penile lesions or discharge, no testicular mass.?EXTREMITIES:?no clubbing, cyanosis, or edema.?NEUROLOGIC:?nonfocal, motor strength normal upper and lower extremities, sensory exam intact.? Assessment: * Assessment: 1.?Annual physical exam - Z0 0.00 (Primary)?2.?Mild intermittent asthma without complication - J45.20?3.?Prostatism - N40.0?4.?Colon cancer screening - Z12.11?5.?Depression screening - Z13.31? Plan: * Treatment: 2.?Mild intermittent asthma without complication? Continue Advair Diskus Aerosol Powder Breath Activated, 250-50 MCG/ACT, 1 puff, Inhalation, Twice a day.?Imaging: XR CHEST 2 VIEW PA & LAT Notes: pending diagnostic testing, CHEST XRAY ORDER GIVEN TO PATIENT.?? 3.?Prostatism? Notes: stable, will continue to monitor.?? 4.?Colon cancer screening?LAB: Occult Blood, Stool, Guaiac?Negative ? Value Reference Range ?Occult Blood, Stool, Guaiac Neg Notes: guaiac negative.??5.?Depression screening? Notes: negative screen.??6.?Others? Referral To:Adrián Perez??Gastroenterology ?Reason:SCREEN FOR COLON CANCER * Procedure Codes:?42302 TEST FOR BLOOD, FECES * Follow Up:?1 Year * * Sign off status: Completed true * Provider:?Fidel Yo MD Date:?0 05/03/2023 Generated for Juan swenson/Lary/Wyatt on:?04/27/2024 12:15 PM EST History and Physical Notes * HPI (History of Present Illness) Category Sub-Category Detail Notes Category Not es Depression Screening PHQ-9 Little inte rest or pleasure in doing things: Not at all patient is a 57 yo male HERE FOR YEARLY EVALUATION with review of recent labs and follow up of chronic issues. once on the advair his breathing got perfect. starting to feel it wheeze again. occasionally uses rescue before hiking/ occuring last month Feeling down, depressed, or hopeless: No t at all Trouble falling or staying asleep, or sl eeping too much: Not at all Feeling tired or having little energy: N ot at all Poor appetite or overeating: Not at all Feeling bad about yourself o r that you are a failure, or have let yourself or your family down: Not at all Trouble concentrating on thi ngs, such as reading the newspaper or watching television: Not at all Moving or speaking so slowly that other people could have noticed; or the opposite, being so fidgety or restless that you have been moving around a lot more than usual: Not at all Thoughts that you would be b tamy off or of hurting yourself in some way: Not at all Total Score: 0 Interpretation and Intervention Depression Ramesh garnett Findings: Negative Follow-Up for Depression: : review of PH Q-9 found negative result, no follow-up needed SDOH Questions SDOH Questions In the past year have you been worried about losing housing?: No In the past year have you or any family members you live with been unable to get any of the following when it was really needed? Check all that apply:: None Communication Needs Communication Needs Does the patient have a hearing impairment: No Does the patient have a vision impairmen t?: Yes ?If yes, what is the vision impairment?: Glasses Does the patient have a cognition impair ment?: No Examination Category Sub-Category Detail Notes Category Not es General Examination GENERAL APPEARANCE: well dev eloped, well nourished, in no acute distress HEAD: normocephalic, atrau matic EYES: pupils equal, round, reactive to light and accommodation, sclera non- icteric EARS: normal THROAT: clear NECK/THYROID: neck supple, full ra nge of motion, no cervical lymphadenopathy, no bruits HEART: regular rate and rhy thm, S1, S2 normal, no murmurs LUNGS: clear to auscultatio n bilaterally with few fine rales at bases ABDOMEN: soft, nontender, non distended, bowel sounds present, normal, no organomegaly , no masses palpable NEUROLOGIC: nonfocal, motor stre ngth normal upper and lower extremities, sensory exam intact SKIN: warm and dry, no caleb picious lesions EXTREMITIES: no clubbing, cyanosi s, or edema MALE GENITOURINARY: circumcised, no peni le lesions or discharge, no testicular mass RECTAL EXAM: normal tone, no exte rnal hemorrhoids, no masses palpable, prostate normal, stool guaiac negative ORAL CAVITY: mucosa moist Consultation Request Notes Referral Date Referring Provider Referred Provider Not es 05/03/2023 Fidel Yo Robert SCREEN FOR COLON CANCER
--- OUTSIDE RECORDS SUMMARY | 2024-04-27 12:16 | XMS_ITS ---
Author Organization [facility] Address [address] [place] [address] Care Team Providers Care Lining Inserter Name Role Phone Fidel Yo MD Primary Care Provider Adrián Mehta Unavailable [phone] ALLERGIES No Known Allergies REASON FOR VISIT Patient presents today for a recall colonoscopy MEDICATIONS Medication SIG (Take, Route, Frequency, Duration) Notes Start Date End Date Status Advair Diskus 250-50 MCG/ACT Inhalation for 30 Active Symbicort Active Tadalafil 20 MG TAKE ONE TABLET BY M OUTH EVERY DAY NEEDED Oral for 60 Active Fluticasone-Salmeterol 250-50 MCG/ACT INHALE 1 PUFF INTO THE LUNGS BY MOUTH 2 TIMES A DAY Inhalation for 30 Active ProAir HFA Active IMMUNIZATIONS Vaccine Route Administration Date Status Comme nts Influenza Unknown 08/25/2023 Refused SOCIAL HISTORY Tobacco Use: Social History Observation Description Date Details (start date - stop date) Never Smoker NA - NA Sex Assigned At : Social History Observation Description Sex Assigned At Unknown Tobacco Use/Smoking Question Answer Notes Patient is a nonsmoker Alcohol Screen Question Answer Notes Did you have a drink contain ing alcohol in the past year? Yes Points 0 Interpretation Negative How often did you have 6 or more drinks on one occasion in the past year? Never (0 point) How many drinks did you have on a typical day when you were drinking in the past year? 1 or 2 drinks (0 point) PROBLEMS Problem Type ICD Code Onset Dates Problem Status W/U Status Risk SNOMED Code Notes Problem Colon cancer screening (Z12.11) Active confirmed Colon cancer screening (251549039) Problem Encounter for other preprocedural examination (Z01.818) Active confirmed Pre-procedure evaluation check (215327385) VITAL SIGNS Temperature 98.6 degrees Fahrenheit 08/25/19 24 Blood pressure systolic 000 mm Hg 08/25/19 24 Blood pressure diastolic 00 mm Hg 024 Height 72.5 in 08/25/2023 Weight 214 lb 6 oz lbs 08/25/2023 BMI 28.67 kg/m2 08/25/2023 Encounters Encounter Location Date Provider Diagnosis [facility] [address] [place] [address] 08/25/2023 Adrián Pedraza Colon cancer screeni ng Z12.11 and Encounter for other preprocedural examination Z01.818 ASSESSMENTS Encounter Date Diagnosis Assessment Notes Treatment Notes Treatment Clinical Notes 08/25/2023 Colon cancer screening (ICD-10 - Z12.11) 08/25/2023 Encounter for other preprocedural examination (ICD-10 - Z01.818) PLAN OF TREATMENT Future Test Test Name Order Date COLONOSCOPY 08/25/2023 Next Appt Details Follow Up: prn, Reason: Progress Notes * Examination Category Sub-Category Detail Notes General Examination GENERAL APPEARANCE: pleasant , well nourished, well developed, in no acute distress EYES: sclera non-icteric NECK/THYROID: no cervical lymphade nopathy, neck supple HEART: S1, S2 normal LUNGS: clear to auscultatio n bilaterally ABDOMEN: normal bowel sounds, no guarding or rigidity, no hepatosplenomegaly, no masses palpable, soft, nontender, nondistended. NEUROLOGIC: alert and oriented SKIN: nonjaundiced, no spi eliot angiomata. EXTREMITIES: no edema ORAL CAVITY: mucosa moist
--- OUTSIDE RECORDS SUMMARY | 2024-04-27 12:16 | XMS_ITS | Patient Health Record ---
Author Organization [facility] Address [address] [place] [address] Care Team Providers Care Phy Therapist Name Role Phone Fidel Yo MD Primary Care Provider Adrián Mehta Unavailable [phone] ALLERGIES No Known Allergies REASON FOR REFERRAL No Information MEDICATIONS Medication SIG (Take, Route, Frequency, Duration) Notes Start Date End Date Status Advair Diskus 250-50 MCG/ACT Inhalation for 30 Active ProAir HFA Active Symbicort Active Tadalafil 20 MG TAKE ONE TABLET BY M OUTH EVERY DAY NEEDED Oral for 60 Active Fluticasone-Salmeterol 250-50 MCG/ACT INHALE 1 PUFF INTO THE LUNGS BY MOUTH 2 TIMES A DAY Inhalation for 30 Active IMMUNIZATIONS Vaccine Route Administration Date Status Comme nts Influenza Unknown 08/25/2023 Refused SOCIAL HISTORY Sex Assigned At : Social History Observation Description Sex Assigned At Unknown PROBLEMS Problem Type ICD Code Onset Dates Problem Status W/U Status Risk SNOMED Code Notes Problem Colon cancer screening (Z12.11) Active confirmed Colon can cer screening (954485862) Problem Encounter for other preprocedural examination (Z01.818) Active confirmed Pre-procedure evaluation check (979560909) Problem Diverticulosis of large intestine without perforation or abscess without bleeding (K57.30) Active confirmed Diverticul ar disease of colon (215446913) VITAL SIGNS Temperature 98.6 degrees Fahrenheit 08/25/2023 Blood pressure diastolic 00 mm Hg 08/25/2023 Height 72.5 in 08/25/2023 Blood pressure systolic 000 mm Hg 08/25/2023 Weight 214 lb 6 oz lbs 08/25/2023 BMI 28.67 kg/m2 08/25/2023 Encounters Encounter Location Date Provider Diagnosis [facility] [address] [address] [place], [place] [phone] 01/03/2024 Adrián Pedraza Colon cancer screeni ng Z12.11 ; Diverticulosis of large intestine without perforation or abscess without bleeding K57.30 and Other hemorrhoids K64.8 [facility] [address] [place] [address] 08/25/2023 Adrián Pedraza Colon cancer screeni ng Z12.11 and Encounter for other preprocedural examination Z01.818 ASSESSMENTS Encounter Date Diagnosis Assessment Notes Treatment Notes Treatment Clinical Notes 01/03/2024 Colon cancer screening (ICD-10 - Z12.11) 01/03/2024 Diverticulosis of large intestine without perforation or abscess without bleeding (ICD-10 - K57.30) 08/25/2023 Colon cancer screening (ICD-10 - Z12.11) 08/25/2023 Encounter for other preprocedural examination (ICD-10 - Z01.818) 01/03/2024 Other hemorrhoids (ICD-10 - K64.8) PLAN OF TREATMENT Pending Test Test Name Order Date ENDOMYSIAL IGA 05/06/2012 TRANSGLUTAMINASE AB IGA 05/06/2012 TRANSGLUTAMINASE AB IGG 05/06/2012 Future Test Test Name Order Date COLONOSCOPY 05/06/2012 COLONOSCOPY 08/25/2023 Insurance Providers Payer Name Payer Address Payer Phone Subscriber Number Group Number Insured Name Patient Relationship to Insured Coverage Start Date Coverage End Date [facility] [address] [place], [place] [id number] [phone] [id number] BREANN WU Self - patient is the insured MEDICAL (GENERAL) HISTORY Medical History History ICD Code asthma Denies [place],DM,CVA,Lung disease,renal dise ase Neg. colonoscopy in 2012- s was done for a workup of diarrhea and was completely negative, including biopsies of the terminal ileum and colon Surgical History Surgery Date(Month/Year) Appendectomy Right biceps Right ankle
--- OUTSIDE RECORDS SUMMARY | 2024-04-27 12:16 | XMS_ITS ---
Author Organization [facility] Address [address] [place] [address] Care Team Providers Care Yarder Puncher Name Role Phone Fidel Yo MD Primary Care Provider Adrián Mehta Unavailable [phone] REASON FOR VISIT screening PROBLEMS Problem Type ICD Code Onset Dates Problem Status W/U Status Risk SNOMED Code Notes Problem Diverticulosis of large intestine without perforation or abscess without bleeding (K57.30) Active confirmed Diverticul ar disease of colon (605436026) Encounters Encounter Location Date Provider Diagnosis [facility] Outpatient [address] [place] [phone] 01/03/2024 Adrián Pedraza Colon cancer scree tamir Z12.11 ; Diverticulosis of large intestine without perforation or abscess without bleeding K57.30 and Other hemorrhoids K64.8 ASSESSMENTS Encounter Date Diagnosis Assessment Notes Treatment Notes Treatment Clinical Notes 01/03/2024 Colon cancer screening (ICD-10 - Z12.11) 01/03/2024 Diverticulosis of large intestine without perforation or abscess without bleeding (ICD-10 - K57.30) 01/03/2024 Other hemorrhoids (ICD-10 - K64.8) PLAN OF TREATMENT No Information
--- OUTSIDE RECORDS SUMMARY | 2024-04-27 12:16 | XMS_ITS | Patient Health Record ---
Author Organization Fidel Yo MD Address [address] [place], [place] [id number] Care Team Providers Care Structural Rigger Name Role Phone Fidel Yo Primary Care Provider [phone] Allergies No Known Allergies Results Component Value Reference Range Notes Complete Blood Count Auto Di ff Reviewed date:04/27/2023 04:33:03 PM Interpretation: Performing Lab:[facility], [address] [place] [phone] Notes/Report: White Blood Count 6.9 4.8-10.8 X10*3/uL Red Blood Count 4.95 4.60-5.80 X10*6/uL Hemoglobin 14.8 14.0-18.0 g/dl Hematocrit 43.7 42.0-52.0 % Mean Corpuscular Volume 88.3 80.0-98.0 fL Mean Corpuscular Hemoglobin 29.9 27.0-33.0 pg Mean Corpuscular HGB Conc 33.9 31.0-36.0 g/dl Red Cell Distribution Width 12.5 11.0-16.0 % Platelet Count 327 160-400 X10*3/uL Mean Platelet Volume 10.1 9.4-12.4 fL Neutrophils Percent Auto 68.3 45-73 % Imm Gran Pct Auto 0.3 0.0-0.4 % Lymphocytes Percent Auto 18.1 20-40 % Monocytes Percent Auto 9.1 2-11 % Eosinophils Percent Auto 3.6 0-4 % Basophils Percent Auto 0.6 0-2 % NRBC Pct Auto 0.0 0.0-0.2 /100WBC Neutrophils Absolute Auto 4.7 2.0-8.3 x10*3/u L Imm Gran Abs Auto 0.02 0.00-0.03 X10*3/uL Lymphocytes Absolute Auto 1.2 1.2-4.9 X10*3/u L Monocytes Absolute Auto 0.6 0.1-1.2 X10*3/uL Eosinophils Absolute Auto 0.3 0.0-0.4 X10*3/u L Basophils Absolute Auto 0.0 0.0-0.2 X10*3/uL NRBC Abs Auto 0.000 0.0-0.012 X10*3/uL Comprehensive [place]. Panel Fa st Reviewed date:04/27/2023 12:43:33 PM Interpretation: Performing Lab:[facility], [address] [place] [phone] Notes/Report: Sodium 139 135-145 mmol/L Potassium 4.4 3.3-5.1 mmol/L Chloride 107 96-108 mmol/L Carbon Dioxide 28 22-29 mmol/L Anion Gap 8 12-20 Blood Urea Nitrogen 19 9-16 mg/dL Creatinine 1.01 0.5-1.4 mg/dL Estimated Glomerular Filt Rate > 60 NOTE: For -Belarusian individuals, multiply the result by 1.210. Chronic Kidney Disease: Estimated GFR < 60 mL/min/1.73m2 Severe Kidney Disease: Estimated GFR < 15 mL/min/1.73m2 Glucose Fasting 100 60-99 mg/dL A fasting glucose from 100-125 mg/dl is considered impaired (pre-diabetes). Calcium 9.6 8.4-10.2 mg/dL Bilirubin Total 0.7 0.0-1.0 mg/dL Aspartate Amino Transferase 27 5-37 U/L Alanine Aminotransferase 28 0-40 U/L Total Protein 7.4 6.5-8.0 g/dL Albumin Level 4.3 3.5-5.0 g/dL Alkaline Phosphatase 77 39-117 U/L Lipid Panel Reviewed date:04/27/2023 12:30:14 PM Interpretation: Performing Lab:[facility], [address] [place] [phone] Notes/Report: Triglycerides 64 <150 mg/dL Desirable Triglyceride: less than 150 mg/dL Borderline High Triglyceride 150-199 mg/dL High Triglyceride: 200-499 mg/dL Very High Triglyceride: greater than or equal to 5OO mg/dL Cholesterol 218 <200 mg/dL Desirable Cholesterol: less than 200 mg/dL Borderline High Cholesterol: 200-239 mg/dL High Cholesterol: greater than 239 mg/dL LDL Cholesterol Calculated 146 <100 mg/dL Desirable LDL: less than 100 mg/dL Near Optimal/Above Optimal LDL: 110-129 mg/dL Borderline High LDL: 130-159 mg/dL High LDL: 160-189 mg/dL Very High LDL: greater than or equal to 190 mg/dL HDL Cholesterol 60 >40 mg/dL Desirable HDL: greater than 40 mg/dL Note: This HDL assay may give artificially low results in patients with liver disease. PSA,Total (Free>4and<10) Reviewed date:04/27/2023 04:30:56 PM Interpretation: Performing Lab:[facility], [address] [place] [phone] Notes/Report: PSA,Total (Free>4and<10) 1.08 0.00-4.00 ng/mL A Free PSA was not performed: The percentage of Free PSA can be used to enhance the differentiation of prostate cancer from benign prostatic disease in subjects whose PSA levels are between 4.0 and 10.0 ng/mL. For subjects whose PSA levels are below 4.0 or above 10.0 ng/mL, the risk of prostate cancer is determined on the basis of the PSA alone. Therefore the % Free PSA is recommended only for those subjects whose PSA levels are between 4.0 and 10.0 ng/mL. PSA methodology: Lopez Alinity i Chemiluminescent Microparticle Immunoassay (CMIA) UA ClnCatch+Micro w/rflx Cul t Reviewed date:04/27/2023 11:10:33 AM Interpretation: Performing Lab:[facility], [address] [place] [phone] Notes/Report: Urine, Clean Catch Color Urine Yellow Appearance Urine Clear PH 7.5 5.0-9.0 Glucose Urine UA Negative Negative mg/dL Urine Blood Negative Negative Specific [place] - Urine 1.020 1.005-1.025 Urine Protein Negative Neg-Trace mg/dL Urine Ketones Negative Negative mg/dL Nitrite Urine Negative Negative Leukocyte Esterase Urine Negative Negative RBC Urine 0-2 0-2 /HPF WBC Urine 0-5 0-5 /HPF Squamous Epithelial Cell Urine 0-2 0-2 /HPF Bacteria Urine None Seen None Seen Hyaline Casts Urine 0-2 0-2 /LPF Occult Blood, Stool, Guaiac Reviewed date:05/03/2023 03:53:23 PM Interpretation:Negative Performing Lab: Notes/Report: Negative Occult Blood, Stool, Guaiac Neg XR chest 2V Reviewed date:05/04/2023 03:24:16 PM Interpretation: Performing Lab: Notes/Report: [address] [address] XRay Report Signed Patient: Jonathan Leyva MR#: [id number] : 1965 Acct:[id number] Age/Sex: 57 / M ADM Date: 05/03/23 Loc: MILY Attending Dr: Fidel Yo MD Ordering Physician: Fidel Yo MD Date of Service: 05/03/23 Procedure(s): XR chest 2V Accession Number(s): [id number] cc: Fidel Yo MD EXAMINATION: XR CHEST CLINICAL INFORMATION: Mild intermittent asthma. COMPARISON: 07/02/2022 TECHNIQUE: 3 views of the chest. FINDINGS: The lungs are well inflated. There is no gross pneumothorax. Heart size within normal limits. No pleural effusion. Mild degenerative changes in the thoracic spine. No gross pleural effusion. XR/XR chest 2V IMPRESSION: No evidence of pneumonia. Well-inflated lungs. Dictated By: Ely Bardales MD Signed By: <Electronically signed by Ely Bardales MD in OV> 05/04/23 1400 DD/ 1529 TD/TT: Bellman Driver: [address] [address] XRay Report Signed Patient: Jonathan Leyva MR#: [id number] : 1965 Acct:[id number] Age/Sex: 57 / M ADM Date: 05/03/23 Loc: MILY Attending Dr: Fidel Yo MD Ordering Physician: Fidel Yo MD Date of Service: 05/03/23 Procedure(s): XR jennifer st 2V Accession Number(s): [id number] cc: Fidel Yo MD EXAMINATION: XR CHEST CLINICAL INFORMATION: Mild intermittent asthma. COMPARISON: 07/02/2022 TECHNIQUE: 3 views of the chest. FINDINGS: The lungs are well inflated. There is no gross pneumothorax. Heart size within normal limits. No pleural effusion. Mild degenerative changes in the thoracic spine. No gross pleural effusion. XR/XR chest 2V IMPRESSION: No evidence of pneumonia. Well-inflated lungs. Dictated By: Ely Bardales MD Signed By: <Electronically signed by Ely Bardales MD in OV> 05/04/23 1400 DD/ 1529 TD/TT: Bellman Driver: XR chest 2V Reviewed date:02/07/2024 09:18:08 AM Interpretation: Performing Lab: Notes/Report: [address] [address] XRay Report Signed Patient: Jonathan Leyva MR#: [id number] : 1965 Acct:[id number] Age/Sex: 58 / M ADM Date: 02/04/24 Loc: [facility] Attending Dr: Fidel Yo MD Ordering Physician: Fidel Yo MD Date of Service: 02/04/24 Procedure(s): XR chest 2V Accession Number(s): [id number] cc: Fidel Yo MD EXAMINATION: XR CHEST CLINICAL INFORMATION: PNEUMONIA DUE TO MYCOPLASMA PNEUMONIAE COMPARISON: None available. TECHNIQUE: 2 views of the chest were obtained. FINDINGS: The cardiac silhouette is normal. There is mild diffuse bronchial wall thickening. There are no areas of consolidation. There are no pleural effusions or pneumothoraces. The bones and soft tissues are unremarkable for the patient's age. XR/XR chest 2V IMPRESSION: Bronchial wall thickening may be infectious and/or inflammatory in etiology. Electronically signed by: Oriana Ortega MD 02/05/2024 07:08 PM [facility] Dictated By: Oriana Ortega MD Signed By: <Electronically signed by Oriana Ortega MD in OV> 02/05/24 1908 DD/ 1317 TD/TT: 12/06/24 1336 Bellman Driver: HERMELINDA [address] [place] [address] XRay Report Signed Patient: Jonathan Leyva MR#: [id number] : 1965 Acct:[id number] Age/Sex: 58 / M ADM Date: 02/04/24 Loc: HO.XRAY Attending Dr: Fidel Yo MD Ordering Physician: Fidel Yo MD Date of Service: 02/04/24 Procedure(s): XR jennifer st 2V Accession Number(s): [id number] cc: Fidel Yo MD EXAMINATION: XR CHEST CLINICAL INFORMATION: PNEUMONIA DUE TO MYCOPLASMA PNEUMONIAE COMPARISON: None available. TECHNIQUE: 2 views of the chest were obtained. FINDINGS: The cardiac silhouet te is normal. There is mild diffuse bronchial wall thickening. There ar e no areas of consolidation. There are no pleural effusions or pneumothoraces. The bones and soft tissues are unremarkable for the patient's age. XR/XR chest 2V IMPRESSION: Bronchial wall thickening may be infectious and/or inflammatory in etiology. Electronically olga lidia d by: Oriana Ortega MD 02/05/2024 07:08 PM [facility] Dictated By: Oriana Ortega MD Signed By: <Electronically signed by Oriana Ortega MD in OV> 02/05/24 1908 DD/ 1317 TD/TT: 02/04/24 1336 Bellman Driver: HERMELINDA LYONS CC w/rflx Micro + Cult (N ot yet reviewed by provider) Interpretation: Performing Lab:[facility], [address] [place] [phone] Notes/Report: [id number] Urine, Clean Catch Color Urine Yellow Appearance Urine Clear PH 7.0 5.0-9.0 Glucose Urine UA Negative Negative mg/dL Urine Blood Negative Negative Specific [place] - Urine 1.010 1.005-1.025 Urine Protein Negative Neg-Trace mg/dL Urine Ketones Negative Negative mg/dL Nitrite Urine Negative Negative Leukocyte Esterase Urine Negative Negative Complete Blood Count Auto Di ff (Not yet reviewed by provider) Interpretation: Performing Lab:[facility], [address] [place] [phone] Notes/Report: White Blood Count 7.3 4.8-10.8 X10*3/uL Red Blood Count 5.11 4.60-5.80 X10*6/uL Hemoglobin 15.3 14.0-18.0 g/dl Hematocrit 45.2 42.0-52.0 % Mean Corpuscular Volume 88.5 80.0-98.0 fL Mean Corpuscular Hemoglobin 29.9 27.0-33.0 pg Mean Corpuscular HGB Conc 33.8 31.0-36.0 g/dl Red Cell Distribution Width 12.4 11.0-16.0 % Platelet Count 384 160-400 X10*3/uL Mean Platelet Volume 9.7 9.4-12.4 fL Neutrophils Percent Auto 63.7 45-73 % Imm Gran Pct Auto 0.4 0.0-0.4 % Lymphocytes Percent Auto 21.1 20-40 % Monocytes Percent Auto 9.0 2-11 % Eosinophils Percent Auto 5.0 0-4 % Basophils Percent Auto 0.8 0-2 % NRBC Pct Auto 0.0 0.0-0.2 /100WBC Neutrophils Absolute Auto 4.7 2.0-8.3 x10*3/u L Imm Gran Abs Auto 0.03 0.00-0.03 X10*3/uL Lymphocytes Absolute Auto 1.6 1.2-4.9 X10*3/u L Monocytes Absolute Auto 0.7 0.1-1.2 X10*3/uL Eosinophils Absolute Auto 0.4 0.0-0.4 X10*3/u L Basophils Absolute Auto 0.1 0.0-0.2 X10*3/uL NRBC Abs Auto 0.000 0.0-0.012 X10*3/uL Comprehensive [place]. Panel Fa st (Not yet reviewed by provider) Interpretation: Performing Lab:[facility], [address] [place] [phone] Notes/Report: Sodium 140 135-145 mmol/L Potassium 4.5 3.3-5.1 mmol/L Chloride 107 96-108 mmol/L Carbon Dioxide 28 22-29 mmol/L Anion Gap 10 12-20 Blood Urea Nitrogen 22 9-16 mg/dL Creatinine 0.88 0.5-1.4 mg/dL Estimated Glomerular Filt Rate > 60 Chronic Kidney Disease: Estimated GFR < 60 mL/min/1.73m2 Severe Kidney Disease: Estimated GFR < 15 mL/min/1.73m2 Glucose Fasting 99 60-99 mg/dL Calcium 9.5 8.4-10.2 mg/dL Bilirubin Total 0.4 0.0-1.0 mg/dL Aspartate Amino Transferase 37 5-37 U/L Alanine Aminotransferase 38 0-40 U/L Total Protein 7.5 6.5-8.0 g/dL Albumin Level 4.1 3.5-5.0 g/dL Alkaline Phosphatase 76 39-117 U/L Lipid Panel (Not yet reviewe d by provider) Interpretation: Performing Lab:[address] [phone] Notes/Report: Triglycerides 63 <150 mg/dL Desirable Triglyceride: less than 150 mg/dL Borderline High Triglyceride 150-199 mg/dL High Triglyceride: 200-499 mg/dL Very High Triglyceride: greater than or equal to 5OO mg/dL Cholesterol 195 <200 mg/dL Desirable Cholesterol: less than 200 mg/dL Borderline High Cholesterol: 200-239 mg/dL High Cholesterol: greater than 239 mg/dL LDL Cholesterol Calculated 130 <100 mg/dL Desirable LDL: less than 100 mg/dL Near Optimal/Above Optimal LDL: 110-129 mg/dL Borderline High LDL: 130-159 mg/dL High LDL: 160-189 mg/dL Very High LDL: greater than or equal to 190 mg/dL HDL Cholesterol 53 >40 mg/dL Desirable HDL: greater than 40 mg/dL Note: This HDL assay may give artificially low results in patients with liver disease. PSA,Total (Free>4and<10) (No t yet reviewed by provider) Interpretation: Performing Lab:[address] [phone] Notes/Report: PSA,Total (Free>4and<10) 1.38 0.00-4.00 ng/mL A Free PSA was not performed: The percentage of Free PSA can be used to enhance the differentiation of prostate cancer from benign prostatic disease in subjects whose PSA levels are between 4.0 and 10.0 ng/mL. For subjects whose PSA levels are below 4.0 or above 10.0 ng/mL, the risk of prostate cancer is determined on the basis of the PSA alone. Therefore the % Free PSA is recommended only for those subjects whose PSA levels are between 4.0 and 10.0 ng/mL. PSA methodology: Lopez Alinity i Chemiluminescent Microparticle Immunoassay (CMIA) Reason For Referral Reason SCREEN FOR COLON CAN CER Diagnosis 1 Screen for colon can cer (Z12.11) Referral Organization Fidel Yo MD Referring Provider First Name Fidel Referring Provider Last Name Srinath Referring Provider Speciality Internal M edicine Referred Provider Adrián Perez Referred Provider Specialty Gastroentero logy General Notes UlisesVyMarleny Gabriel Brielle 09/16/2023 01:01:07 PM EDT > OFFICE NOTE RECD Referral Priority Routine Referral Appointment Date 08/25/2023 Medications Medication SIG (Take, Route, Frequency, Duration) Notes Start Date End Date Status Tadalafil 20 MG TAKE ONE TABLET BY M OUTH EVERY DAY NEEDED for 60 Active Fluticasone-Salmeterol 250-50 MCG/ACT INHALE 1 PUFF INTO THE LUNGS BY MOUTH 2 TIMES A DAY for 30 Active Zithromax Z-Emiliano 250 MG 2 tablet on the f irst day, then 1 tablet daily for 4 days Orally Once a day for 5 day(s) 02/04/2024 Active Ventolin HFA 108 (90 Base) MCG/ACT 2 puffs Inhalation every 4 hours for 30 days 09/21/2011 Not-Taking Immunizations Vaccine Route Administration Date Status Comme nts Fluarix Quadrivalent IM Intramuscular 01/22/2020 Administe red SARS-COV-2 Moderna Unknown 05/24/2020 Administered SARS-COV-2 Moderna Unknown 06/21/2020 Administered SARS-COV-2 Moderna Unknown 03/08/2021 Administered TDaP Unknown 02/02/2020 Refused Fluarix Quadrivalent Unknown 11/21/2020 Refused Fluarix Quadrivalent Unknown 05/01/2022 Refused Social History Tobacco Use: Social History Observation [...] ast year? No Points 0 Interpretation Negative Problems Problem Type SNOMED Code ICD Code Onset Dates Problem Status W/U Status Risk Notes Problem Erectile dysfunction (404516928) Erectile dysfunction (N52.9) Active confirmed Problem Prostatism (50409778) Prostatism (N40.0) Active confirmed Problem 193574497 Mild intermittent asthma without complication (J45.20) Active confirmed Problem 541335962 Erectile dysfunction, unspecified erectile dysfunction type (N52.9) Active confirmed Problem Raynaud's disease (407706361) Raynauds phenomenon without gangrene (I73.00) Active confirmed Problem Cyst of ear canal (Q18.1) Active confirmed Vital Signs Blood pressure diastolic 80 mm Hg 05/03/2023 danilo ght is up 5 pounds since 09-29-22 Height 72 in 02/04/2024 weight at home is 210 BP not taken at home no temp Blood pressure systolic 122 mm Hg 05/03/2023 weig ht is up 5 pounds since 09-29-22 Weight 219 lbs 05/03/2023 weight is up 5 pounds since 09-29-22 BMI 29.70 kg/m2 05/03/2023 weight is up 5 pounds since 09-29-22 Procedures Procedure Date Ordered Date Performed Result Body Sit e Colonoscopy, Screening 01/03/2024 01/03/2024 repeat 10 y Encounters Encounter Location Date Provider Diagnosis Fidel Yo MD [address] [place] [address] Drive [address] [place] [id number] 04/27/2023 Fidel Yo Blood tests for routine general physical examination Z00.00 and Prostatism N40.0 Fidel Yo MD [address] [place] [address] Drive [address] [place] [id number] 04/27/2024 Fidel Yo Blood tests for routine general physical examination Z00.00 ; Prostatism N40.0 and Myalgia of auxiliary muscles, head and neck M79.12 Fidel Yo MD [address] [place] [address] Drive [address] [place] [id number] 05/03/2023 Fidel Yo Mild intermittent asthma without complication J45.20 ; Annual physical exam Z00.00 ; Prostatism N40.0 ; Colon cancer screening Z12.11 and Depression screening Z13.31 Fidel Yo MD [address] [place] [address] Drive [address] [place], [place] [id number] 02/04/2024 Fidel Hartardier Pneumonia due to Mycoplasma pneumoniae, unspecified laterality, unspecified part of lung J15.7 Assessments Encounter Date Diagnosis (ICD Code) Assessment Notes Treatment Notes Treatment Clinical Notes Section Notes 04/27/2023 Blood tests for routine general physical examination (ICD-10 - Z00.00) 04/27/2023 Prostatism (ICD-10 - N40.0) 04/27/2024 Blood tests for routine general physical examination (ICD-10 - Z00.00) 05/03/2023 Mild intermittent asthma without complication (ICD-10 - J45.20) pending diagnostic testing, CHEST XRAY ORDER GIVEN TO PATIENT 05/03/2023 Annual physical exam (ICD-10 - Z00.00) labs reviewed and discussed with patient, make appt with dr perez/ REFERRAL MADE TO DR PEREZ, APPT SCHEDULED FOR 08/25/23 AT 3PM. PATIENT NOTIFIED 02/04/2024 Pneumonia due to Mycoplasma pneumoniae, unspecified laterality, unspecified part of lung (ICD-10 - J15.7) order faxed to [facility] [place], pending diagnostic testing, patient verbalized understanding of medication and directions for use 04/27/2024 Prostatism (ICD-10 - N40.0) 05/03/2023 Prostatism (ICD-10 - N40.0) stable, will continue to monitor 04/27/2024 Myalgia of auxiliary muscles, head and neck (ICD-10 - M79.12) 05/03/2023 Colon cancer screening (ICD-10 - Z12.11) guaiac negative 05/03/2023 Depression screening (ICD-10 - Z13.31) negative screen Plan Of Treatment Pending Test Test Name Order Date XR CHEST 2 VIEW PA & LAT 02/04/2024 XR CHEST 2 VIEW PA & LAT 07/02/2022 XR CHEST 2 VIEW PA & LAT 05/03/2023 Stress Test 07/02/2022 ECHO 07/02/2022 Complete Blood Count Auto Diff Comprehensive [place]. Panel Fast Lipid Panel 04/27/2024 PSA,Total (Free>4and<10) 04/27/2024 Tick-borne Disease Molecular 04/27/2024 UA CC w/rflx Micro + Cult 04/27/2024 UA ClnCatch+Micro w/rflx Cult 04/27/2024 Next Appt Details Provider Name:Fidel Ybarra Devyn ier, 05/04/2024 01:00:00 PM, [address] [place] [address], [address], [place], [place], [phone], Insurance Providers Payer Name Payer Address Payer Phone Subscriber Number Group Number Insured Name Patient Relationship to Insured Coverage Start Date Coverage End Date [employer] [facility] [address] [place], [place] [phone] [id number] Jonathan Leyva Self - patient is the insured Medical (General) History Medical History History ICD Code colonoscopy 05/18/2012colonoscopy 01/03/24 repeat 10y
--- OUTSIDE RECORDS SUMMARY | 2024-04-27 12:16 | XMS_ITS ---
Author Organization Fidel Yo MD Address [address] [place], [place] [phone] Care Team Providers Care Manager Utility Name Role Phone Fidel Yo Primary Care Provider Results Component Value Reference Range Notes Complete Blood Count Auto Di ff (Not yet reviewed by provider) Interpretation: Performing Lab:[facility], [address] [place] [phone] Notes/Report: White Blood Count 7.3 4.8-10.8 X10*3/uL [...] NRBC Abs Auto 0.000 0.0-0.012 X10*3/uL Comprehensive [place]. Panel Fa st (Not yet reviewed by provider) Interpretation: Performing Lab:[facility], [address] [place] [phone] Notes/Report: Sodium 140 135-145 mmol/L Potassium 4.5 [...] yet reviewe d by provider) Interpretation: Performing Lab:[facility], [address] [place] [phone] Notes/Report: Triglycerides 63 <150 mg/dL Desirable Triglyceride: [...] t yet reviewed by provider) Interpretation: Performing Lab:[facility], [address] [place] [phone] Notes/Report: PSA,Total (Free>4and<10) 1.38 0.00-4.00 ng/mL A [...] Lopez Alinity i Chemiluminescent Microparticle Immunoassay (CMIA) REASON FOR VISIT FASTING LABS Encounters Encounter Location Date Provider Diagnosis Fidel Yo MD [address] [place] [address] [address] [place], [place] [phone] 04/27/2024 Fidel Yo Blood tests for routine general physical examination Z00.00 ; Prostatism N40.0 and Myalgia of auxiliary muscles, head and neck M79.12 Assessments Encounter Date Diagnosis (ICD Code) Assessment Notes Treatment Notes Treatment Clinical Notes Section Notes 04/27/2024 Blood tests for routine general physical examination (ICD-10 - Z00.00) 04/27/2024 Prostatism (ICD-10 - N40.0) 04/27/2024 Myalgia of auxiliary muscles, head and neck (ICD-10 - M79.12) Plan Of Treatment Pending Test Test Name Order Date Complete Blood Count Auto Diff Comprehensive [place]. Panel Fast Lipid Panel 04/27/2024 PSA,Total (Free>4and<10) 04/27/2024 Tick-borne Disease Molecular 04/27/2024 UA ClnCatch+Micro w/rflx Cult 04/27/2024 Next Appt Details Provider Name:Fidel Shepard ier, 05/04/2024 01:00:00 PM, [address] [facility], [address], [place], [place], [phone], Progress Notes * Jonathan LEYVA CDOB:1965 (58 yo M)Acc No.[id number]:04/27/2024 Progress Note Patient:?Jonathan LEYVA Provider:?Fidel Yo MD :1965???Age:58 Y???Sex:Male Srinivas e:04/27/2024 Address:[address] [place] [address], [address] Subjective: * Chief Complaints: * ???1. FASTING LABS. * Medical History:? Objective: * Vitals:? Assessment: * Assessment: 1.?Blood tests for routine g eneral physical examination - Z00.00 (Primary)???2.?Prostatism - N40.0???3.?Myalgia of auxiliary muscles, head and neck - M79.12??? Plan: * Treatment: 2.?Prostatism?LAB: Complete Blood Count Auto Diff (Collection Date & Time - 04/27/2024 08:00 AM) ?LAB: Comprehensive [place]. Panel Fast (Collection Date & Time - 04/27/2024 08:00 AM) ?LAB: Lipid Panel (Collection Date & Time - 04/27/2024 08:00 AM) ?LAB: PSA,Total (Free>4and<10) (Collection Date & Time - 04/27/2024 08:00 AM) ?LAB: Tick-borne Disease Molecular ?LAB: UA ClnCatch+Micro w/rflx Cult 3.?Myalgia of auxiliary musc les, head and neck?LAB: Tick-borne Disease Molecular * Procedure Codes:?21382 VENIP UNCT, ROUTINE* * * The named appointment provid er may or may not be the originator of this progress note, and it is not deemed complete until electronically signed by the appointment provider. Sign off status: Pending * Provider:?Fidel Yo MD Date:?0 04/27/2024 Generated for Juan swenson/Lary/Amiitting on:?04/27/2024 12:16 PM EST
[2024-04-28 21:59] LABS: A. Phagocytphilium DNA,RT-PCR NOT DETECTED (NOT DETECTED); Babesia Microti DNA, RT-PCR NOT DETECTED (NOT DETECTED); Borrelia Miyamotoi,DNA RT-PCR NOT DETECTED (NOT DETECTED); E.Chaffeensis DNA RT-PCR NOT DETECTED (NOT DETECTED); Lyme(Borrelia ssp)DNA RT-PCR NOT DETECTED (NOT DETECTED)
== END 2024-04-27 08:01 | disposition home or self-care (01) ==
LOC: HO.LNP 08:00
PROVIDERS: Visit Provider Internal Medicine
DX: Z00.00 Encounter for general adult medical examination without abnormal findings (principal); N40.0 Benign prostatic hyperplasia without lower urinary tract symptoms; Z12.5 Encounter for screening for malignant neoplasm of prostate
CPT/HCPCS: 80053; 80061; 81003; 84153; 85025; 87468; 87469; 87478; 87484; 87798